=== PATIENT | male | born 1950 | race Caucasian/White ===

== ENCOUNTER → 2025-04-25 | Outpatient (CLI) | payer MEDICARE, BC ==
[~2025-04-25] MED LIST: ASPI81TA26 PO; ATOR80TA59; CENT1TAB2 PO; EZET10TA57; NOXI1TAB PO
== END ==
LOC: M RAD 09:04
PROVIDERS: ATTEND Student in an Organized Health Care Education/Training Program
DX: D61.818 Other pancytopenia (principal); N28.1 Cyst of kidney, acquired